=== PATIENT | female | born 1995 | race Caucasian/White ===

== ENCOUNTER 2021-06-30 09:51 | Emergency (ER) | payer SELFPAY ==
[2021-06-30 09:59] VITALS: BP 134/58; PULSE 54; RESP 16; TEMP 37; O2SAT 100
[2021-06-30 10:05] VITALS: BP 134/58; PULSE 54; RESP 16; TEMP 37; O2SAT 100
--- NOTE | 2021-06-30 10:12 | ED.URI ---
HPI - URI/Sore Throat General Chief Complaint: Upper Respiratory Infection Stated Complaint: Sinus Congestion/Cough Time Seen by Provider: 06/30/21 10:12 Source: patient and RN notes reviewed Mode of arrival: ambulatory Limitations: no limitations History of Present Illness HPI Narrative: 25-year-old male presented for complaint of sinus congestion x2 weeks, pnd, cough productive of yellow sputum, headache/sinus pressure and ear pain, fuzzy feeling and fatigue. He missed work today stating today was the worst of the symptoms. He has taken one dose of Mucinex, ibuprofen and DayQuil for symptoms today. Denies fever, chills, body aches, nausea, vomiting, diarrhea, sob or wheezing. He is not boosted for COVID, not vaccinated for the flu. He denies sick contacts. MD elicited complaint: cough Related Data Home Medications Medication Instructions Recorded Confirmed No Home Medications 06/30/21 06/30/21 Allergies Allergy/AdvReac Type Severity Reaction Status Date / Time No Known Allergies Allergy Verified 06/30/21 10:03 Review of Systems Review of Systems: CONSTITUTIONAL:denies malaise, chills, sweats, fever EYES: Denies visual changes, redness, or discharge ENT: Reports rhinorrhea, congestion, sinus pain, otalgia CARDIOVASCULAR: Denies chest pain, palpitations, edema RESPIRATORY: Reports cough, post nasal drainage. Denies dyspnea GASTROINTESTINAL: Denies abdominal pain, nausea, vomiting, diarrhea SKIN: Denies rash or itching MUSCULOSKELETAL: denies myalgia NEUROLOGIC: Denies headache Exam Narrative: GENERAL: Ill-appearing, nontoxic HEAD: Normocephalic EYES: conjunctivae clear ENT: Mucous membranes moist. TM pearly soto with erythematous canals and normal light reflex bilaterally; no tragal tenderness. Oropharynx erythematous without lesions or exudate, no drooling, no hoarseness, no trismus, uvula midline. NECK: Supple. No lymphadenopathy CHEST: Clear to auscultation, breath sounds equal. No wheezing, rhonchi, rales, or stridor. No respiratory distress, speaks in full sentences. HEART: Regular rate and rhythm. No murmur heard. SKIN: Warm, dry, no rash. NEURO: Alert and oriented x3. PSYCH: Normal mood and affect Course Course Emergency Course: Patient is aware of diagnosis, understands and agrees to treatment plan. Anticipatory guidance given. Patient agrees to follow-up as directed and is aware of reasons to seek care at the emergency department. Portions of this record may have been created with voice recognition software Level of Care: Express Care Visit Vital Signs Vital signs: Vital Signs Temperature 98.6 F 06/30/21 09:59 Pulse Rate 54 L 06/30/21 09:59 Respiratory Rate 16 06/30/21 09:59 Blood Pressure 134/58 L 06/30/21 09:59 Pulse Oximetry 100 06/30/21 09:59 Temperature 98.6 F 06/30/21 10:05 Pulse Rate 54 L 06/30/21 10:05 Respiratory Rate 16 06/30/21 10:05 Blood Pressure 134/58 L 06/30/21 10:05 Pulse Oximetry 100 06/30/21 10:05 reviewed MDM - URI/Sore Throat MDM Narrative Medical decision making narrative: covid negative. Sx c/w URI. He is advised on supportive treatments and f/u with pcp. Differential Diagnosis Differential diagnosis: Likely upper respiratory infection, otitis media, sinusitis and viral infection Lab Data Attestation: I reviewed the patient's lab results. Discharge Plan Discharge Clinical Impression: Upper respiratory infection Qualifiers: URI type: unspecified URI Qualified Code(s): J06.9 - Acute upper respiratory infection, unspecified Patient Disposition: Home, Self-Care Condition: Stable Instructions: Antibiotic Form, Allergic Rhinitis (ED) Additional Instructions: Recommend Flonase spray and Zyrtec (or Claritin/Shahnaz) over the counter Cough syrup may cause drowsiness; avoid driving or take it at night time. Tylenol 1000mg every 8 hours as needed for pain/pressure Symptomatic treatment includes: rest, fluids, and increase hum
== END 2021-06-30 10:35 | disposition home or self-care (01) ==
PROVIDERS: Emergency Provider Nurse Practitioner Family
DX: J06.9 Acute upper respiratory infection, unspecified (principal); Z20.822 Contact with and (suspected) exposure to COVID-19
CPT/HCPCS: 87426; 99213; C9803; G0463